=== PATIENT | female | born 1970 | race Caucasian/White ===

== ENCOUNTER 2018-11-13 18:01 | Emergency (ER) | payer BC ==
[2018-11-13] MEDS ORDERED: IPRATROPIUM/ALBUTEROL 0.5-2.5 MG/3 ML AMPUL NEB ONE ×2 (19:27→23:39)
--- NOTE | 2018-11-13 19:29 | ER Document Report ---
ED Medical Screen (RME) - General Chief Complaint: Flu Symptoms Stated Complaint: DIFFICULTY BREATHING Time Seen by Provider: 11/13/18 19:20 Mode of Arrival: Ambulatory Information source: Patient TRAVEL OUTSIDE OF THE [place] IN LAST 30 DAYS: No - HPI Patient complains to provider of: JOSE DORSEY Notes: 11/13/18 19:28 Patient here with complaints of cough and congestion for the last 4 days. She was seen in urgent care on Saturday and was placed on Tessalon and prednisone as well as an inhaler. She seems to be getting worse. She states that she feels short of breath. She is also had some difficulty lying flat and sleeping and complains of bilateral leg swelling for the last several weeks. No fevers. Sputum is clear. She complains of some occasional chest pain. No recent long trips or surgeries, no leg pain, no cancer, no hormone, no history of DVT or PE. Exam No distress, nontoxic-appearing. Lungs clear, bronchitic cough noted. No obvious lower extremity edema noted. Heart sounds normal. Plan CBC, CMP, troponin, BNP, EKG, chest x-ray, DuoNeb. An initial examination was made on the patient as part of the triage process, and it was determined a more comprehensive evaluation was necessary. Initial labs were ordered and patient was transferred to another provider in the ED who assumed care and finished evaluation and plan. Past Medical History - Social History Chew tobacco use (# tins/day): No Frequency of alcohol use: None Drug Abuse: None Renal/ Medical History: Denies: Hx Peritoneal Dialysis Physical Exam - Vital signs Vitals: Temp Pulse Resp BP Pulse Ox 99.6 F 90 20 134/77 H 95 11/13/18 18:11 11/13/18 18:11 11/13/18 18:11 11/13/18 18:11 11/13/18 18:11 Course - Vital Signs Vital signs: Temp Pulse Resp BP Pulse Ox 99.6 F 90 20 134/77 H 95 11/13/18 18:11 11/13/18 18:11 11/13/18 18:11 11/13/18 18:11 11/13/18 18:11
--- NOTE | 2018-11-13 20:20 | RADIOLOGY REPORT (SQ) ---
EXAM DESCRIPTION: XR CHEST 2 VIEWS COMPLETED DATE/TME: 11/13/2018 19:27 CLINICAL HISTORY: 48 years, Female, COUGH, CP COMPARISON: None. NUMBER OF VIEWS: Two TECHNIQUE: PA and lateral chest radiographs were obtained LIMITATIONS: None. FINDINGS: Cardiac and mediastinal contours are normal in appearance. Lungs are clear. No pleural effusion or pneumothorax. IMPRESSION: No acute disease. copyright 2010 [employer]- All Rights Reserved
[2018-11-13 20:57] LABS: ABSOLUTE LYMPHOCYTES (AUTO) 0.6 10^3/uL (0.5-4.7); ABSOLUTE MONOCYTES (AUTO) 0.5 10^3/uL (0.1-1.4); ABSOLUTE NEUT (AUTO) 10.3 10^3/uL (1.7-8.2); BASOPHILS % (AUTO) 0.3 % (0-2); HEMATOCRIT 40.3 % (36.0-47.0); HEMOGLOBIN 14.1 g/dL (12.0-15.5); LYMPHOCYTES % (AUTO) 5.5 % (13-45); MEAN CORPUSCULAR HEMOGLOBIN 30.2 pg (27.0-33.4); MEAN CORPUSCULAR HGB CONC 34.9 g/dL (32.0-36.0); MEAN CORPUSCULAR VOLUME 87 fl (80-97); MONOCYTES % (AUTO) 4.6 % (3-13); PLATELET COUNT 245 10^3/uL (150-450); RED BLOOD COUNT 4.66 10^6/uL (3.72-5.28); RED CELL DISTRIBUTION WIDTH 13.5 % (11.5-14.0); SEGMENTED NEUTROPHILS % (AUTO) 89.6 % (42-78); TOTAL CELLS COUNTED % (AUTO) 100 %; WHITE BLOOD COUNT 11.5 10^3/uL (4.0-10.5)
[2018-11-13 21:22] LABS: ALANINE AMINOTRANSFERASE 37 U/L (9-52); ALBUMIN 4.3 g/dL (3.5-5.0); ALKALINE PHOSPHATASE 46 U/L (38-126); ANION GAP 9 (5-19); ASPARTATE AMINO TRANSFERASE 20 U/L (14-36); BILIRUBIN,DIRECT 0.3 mg/dL (0.0-0.4); BILIRUBIN,TOTAL 0.5 mg/dL (0.2-1.3); BLOOD UREA NITROGEN 14 mg/dL (7-20); CALCIUM 9.3 mg/dL (8.4-10.2); CARBON DIOXIDE 27 mmol/L (22-30); CHLORIDE 104 mmol/L (98-107); GLUCOSE 100 mg/dL (75-110); POTASSIUM 4.1 mmol/L (3.6-5.0); SODIUM 140.2 mmol/L (137-145); TOTAL PROTEIN 7.2 g/dL (6.3-8.2)
[2018-11-13 21:28] LABS: NT PRO BNP 141 pg/mL (<125)
[2018-11-13 21:30] LABS: TROPONIN I < 0.012 ng/mL
[2018-11-13 23:14] LABS: A TYPE INFLUENZA AG NEGATIVE (NEGATIVE); B INFLUENZA AG NEGATIVE (NEGATIVE)
[2018-11-13] MEDS ORDERED: METHYLPREDNISOLONE INJ 125 MG/2 ML SDV IV ONE (23:39)
--- NOTE | 2018-11-13 23:40 | ER Document Report ---
ED Respiratory Problem - General Chief Complaint: Flu Symptoms Stated Complaint: DIFFICULTY BREATHING Time Seen by Provider: 11/13/18 19:20 Primary Care Provider: KIERA HENSLEY MD [ACTIVE STAFF] - Follow up tomorrow Mode of Arrival: Ambulatory Notes: Patient is a 48-year-old female that comes emergency department chief complaint of approximately 4 days of cough, shortness of breath, she also states she felt like she was having a fever on Saturday and yesterday she had a temperature of 100 F. She states that she feels like she cannot get a full breath, she feels like she cannot lie down. She was given an inhaler without a spacer, started on prednisone, given Flonase and Tessalon Perles. She states she does not feel improved. She reports a history of chronic bronchitis, secondhand smoke, denies ever smoking herself. She takes no daily medications, denies any medical history otherwise. She states she did have lower extremity swelling after starting a job where she was constantly on her feet but she started wearing compression stockings and the swelling resolved. TRAVEL OUTSIDE OF THE [place] IN LAST 30 DAYS: No - Related Data Allergies/Adverse Reactions: amoxicillin Allergy (Verified 11/13/18 19:28) Penicillins Allergy (Verified 11/13/18 19:28) Sulfa (Sulfonamide Antibiotics) Allergy (Verified 11/13/18 19:28) Past Medical History - General Information source: Patient - Social History Smoking Status: Never Smoker Chew tobacco use (# tins/day): No Frequency of alcohol use: None Drug Abuse: None Lives with: Family Family History: Reviewed & Not Pertinent Patient has suicidal ideation: No Patient has homicidal ideation: No Pulmonary Medical History: Reports: Hx Bronchitis Renal/ Medical History: Denies: Hx Peritoneal Dialysis - Immunizations Immunizations up to date: Yes Hx Diphtheria, Pertussis, Tetanus Vaccination: Yes Review of Systems - Review of Systems Constitutional: See HPI EENT: No symptoms reported Cardiovascular: No symptoms reported Respiratory: See HPI Gastrointestinal: No symptoms reported Genitourinary: No symptoms reported Female Genitourinary: No symptoms reported Musculoskeletal: No symptoms reported Skin: No symptoms reported Hematologic/Lymphatic: No symptoms reported Neurological/Psychological: No symptoms reported Physical Exam - Vital signs Vitals: Temp Pulse Resp BP Pulse Ox 99.6 F 90 20 134/77 H 95 11/13/18 18:11 11/13/18 18:11 11/13/18 18:11 11/13/18 18:11 11/13/18 18:11 - Notes Notes: GENERAL: Alert, interacts well. No acute distress. HEAD: Normocephalic, atraumatic. EYES: Pupils equal, round, and reactive to light. Extraocular movements intact. ENT: Oral mucosa moist, tongue midline. Oropharynx unremarkable. Airway patent. NECK: Full range of motion. Supple. Trachea midline. LUNGS: Expiratory wheezes throughout, no rales or rhonchi. No tachypnea or labored breathing. HEART: Regular rate and rhythm. No murmur ABDOMEN: Soft, non-tender. Non-distended. Bowel sounds present in all 4 quadrants. GENITOURINARY: Deferred EXTREMITIES: Moves all 4 extremities spontaneously. No edema, normal radial and dorsalis pedis pulses bilaterally. No cyanosis. BACK: no cervical, thoracic, lumbar midline tenderness. No saddle anesthesia, normal distal neurovascular exam. NEUROLOGICAL: Alert and oriented x3. Normal speech. cranial nerves II through XII grossly intact. PSYCH: Normal affect, normal mood. SKIN: Warm, dry, normal turgor. No rashes or lesions noted. Course - Re-evaluation Re-evalutation: Patient with a lot of expiratory wheezes on exam. However she does not have tachypnea or labored breathing. She does not have hypoxia. She does not appear to be in any distress. She was given duo nebs, magnesium, Solu-Medrol after i nitial DuoNeb did not resolve her symptoms. After that she was significantly improved, states she feels much better, wheezing is almost resolved. She can ambulate without any dyspnea, she is not hypoxic on my exam. CBC, chemistry unremarkable. Chest x-ray unremarkable. Influenza test run in triage was reviewed and negative. Troponin negative, BNP is not elevated significantly, patient has no lower extremity swelling on my exam. Clinical picture is most consistent with bronchitis. Discussed treatment, provided with spacer, provided with symptom relief, patient will complete her prednisone, start her doxycycline that she was prescribed, and follow-up with primary care. I did provide a referral on request. Discussed return precautions. Patient states understanding and agreement. - Vital Signs Vital signs: Temp Pulse Resp BP Pulse Ox 98.0 F 91 18 124/81 96 11/14/18 02:14 11/14/18 02:14 11/14/18 02:14 11/14/18 02:14 11/14/18 02:14 - Laboratory Result Diagrams: 11/13/18 20:23 11/13/18 20:23 Laboratory results interpreted by me: 11/13/18 11/13/18 20:23 20:23 WBC 11.5 H Seg Neutrophils % 89.6 H Lymphocytes % 5.5 L Absolute Neutrophils 10.3 H NT-Pro-B Natriuret Pep 141 H Discharge - Discharge Clinical Impression: Wheezing, Bronchitis Condition: Stable Disposition: HOME, SELF-CARE Additional Instructions: Your examination is consistent with bronchitis. There is no evidence of fluid on your lungs (congestive heart failure), pneumonia, heart attack, or other concerning a normality on your work-up. Use your albuterol inhaler, use the spacer, uses every 4-6 hours as needed. Continue your prednisone, consider taking your doxycycline. Use the syrup if needed for cough especially at night to sleep. Follow-up closely with the primary care referral for additional evaluation and management. Return if you worsen including increased difficulty breathing, fevers, or any other concerning or worsening symptoms. Prescriptions: Hydrocodone Bit/Homatropine [Hycodan Syrup 5-1.5 mg/5 ml Ud Cup] 5 ml PO Q4HP PRN #120 ml PRN Reason: Forms: Return to Work Referrals: KIERA HENSLEY MD [ACTIVE STAFF] - Follow up tomorrow
[2018-11-13] MEDS: MAGNESIUM SULFATE/D5W 1 GM/100 ML RTUPB IV SCH (23:43)
[2018-11-14] MEDS: MAGNESIUM SULFATE/D5W 1 GM/100 ML RTUPB IV SCH (01:10)
[2018-11-14] MEDS ORDERED: ALBUTEROL SULFATE HFA (90 MCG/PUFF) 8 GM MDI (1 MDI/ER DISP) IH ONE (01:59)
[2018-11-14 02:15] VITALS: BP 124/81
--- NOTE | 2018-11-14 22:40 | EKG REPORT ---
SEVERITY:- NORMAL ECG - SINUS RHYTHM : Confirmed by: Lizet Russell MD 14-Nov-2018 22:40:26
== END 2018-11-14 02:23 | disposition home or self-care (01) ==
LOC: ER 18:01
DX: J40 Bronchitis, not specified as acute or chronic (principal); R06.2 Wheezing; Z88.0 Allergy status to penicillin; Z88.2 Allergy status to sulfonamides
CPT/HCPCS: 93005; 94640; 99284; 96375; 96365; 96366; 36415; 85025; 80053; 84484; 87804; 83880; 71046; 93010; J2930; J3475 ×2; J3490; J7620

== ENCOUNTER → 2018-11-26 | Outpatient (CLI) | payer BC ==
[2018-11-26 08:14] LABS: ABSOLUTE EOSINOPHILS # (AUTO) 0.1 10^3/uL (0.0-0.6); ABSOLUTE LYMPHOCYTES (AUTO) 1.9 10^3/uL (0.5-4.7); ABSOLUTE MONOCYTES (AUTO) 0.6 10^3/uL (0.1-1.4); ABSOLUTE NEUT (AUTO) 5.1 10^3/uL (1.7-8.2); BASOPHILS % (AUTO) 0.6 % (0-2); HEMATOCRIT 41.9 % (36.0-47.0); HEMOGLOBIN 14.6 g/dL (12.0-15.5); LYMPHOCYTES % (AUTO) 24.4 % (13-45); MEAN CORPUSCULAR HEMOGLOBIN 30.1 pg (27.0-33.4); MEAN CORPUSCULAR HGB CONC 34.9 g/dL (32.0-36.0); MEAN CORPUSCULAR VOLUME 86 fl (80-97); PLATELET COUNT 227 10^3/uL (150-450); RED BLOOD COUNT 4.86 10^6/uL (3.72-5.28); RED CELL DISTRIBUTION WIDTH 13.4 % (11.5-14.0); TOTAL CELLS COUNTED % (AUTO) 100 %; WHITE BLOOD COUNT 7.7 10^3/uL (4.0-10.5)
--- NOTE | 2018-11-26 08:43 | RADIOLOGY REPORT (SQ) ---
EXAM DESCRIPTION: CHEST PA/LATERAL COMPLETED DATE/TIME: 11/26/2018 7:58 am REASON FOR STUDY: CHEST PAIN ON BREATHING COMPARISON: 11/13/2018 EXAM PARAMETERS: NUMBER OF VIEWS: two views TECHNIQUE: Digital Frontal and Lateral radiographic views of the chest acquired. RADIATION DOSE: NA LIMITATIONS: none FINDINGS: LUNGS AND PLEURA: No opacities, masses or pneumothorax. No pleural effusion. MEDIASTINUM AND HILAR STRUCTURES: No masses or contour abnormalities. HEART AND VASCULAR STRUCTURES: Heart normal size. No evidence for failure. BONES: No acute findings. HARDWARE: None in the chest. OTHER: No other significant finding. IMPRESSION: NO SIGNIFICANT RADIOGRAPHIC FINDING IN THE CHEST. TECHNICAL DOCUMENTATION: JOB ID: [id number] [employer]- All Rights Reserved Reading location - IP/workstation name: [email or web address]
[2018-11-26 08:46] LABS: ALANINE AMINOTRANSFERASE 24 U/L (9-52); ALBUMIN 3.8 g/dL (3.5-5.0); ALKALINE PHOSPHATASE 40 U/L (38-126); ANION GAP 9 (5-19); ASPARTATE AMINO TRANSFERASE 18 U/L (14-36); BILIRUBIN,DIRECT 0.3 mg/dL (0.0-0.4); BILIRUBIN,TOTAL 0.5 mg/dL (0.2-1.3); BLOOD UREA NITROGEN 14 mg/dL (7-20); CARBON DIOXIDE 30 mmol/L (22-30); CHLORIDE 103 mmol/L (98-107); CREATINE KINASE 68 U/L (30-135); GLUCOSE 95 mg/dL (75-110); POTASSIUM 3.7 mmol/L (3.6-5.0); SODIUM 141.8 mmol/L (137-145); TOTAL PROTEIN 6.7 g/dL (6.3-8.2)
[2018-11-26 08:53] LABS: TROPONIN I < 0.012 ng/mL
== END ==
LOC: OD 07:19
PROVIDERS: ATTEND Physician Assistant
DX: R07.1 Chest pain on breathing (principal)
CPT/HCPCS: 36415; 71046; 80053; 82550; 82553; 84484; 85025; 85379

== ENCOUNTER 2019-02-16 16:55 | Emergency (ER) | payer BC ==
[2019-02-16] MEDS ORDERED: ASPIRIN 81 MG TABLET, CHEWABLE PO ONE (18:15)
[2019-02-16] MEDS ORDERED: NITROGLYCERIN 2% OINTMENT 1 GM PACKET TP ONE (18:16)
[2019-02-16] MEDS ORDERED: NITROGLYCERIN 0.4 MG/TAB 25 TAB/BOTTLE SL PRN (18:16)
--- NOTE | 2019-02-16 18:27 | ER Document Report ---
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 The pain is also worse with movement of her left arm. She states sometimes the pain radiates down her left arm. denies any neck pain. She states she wears Livan hosing chronically and her right leg is always more swollen than her left. She states chest pain and shortness of breath are worse with exertion and better with rest. She tells me she follows with Dr. Hernandez, cardiology in [place], and had a negative stress test 2 weeks ago. i do not have access to these records for review however. she takes Symbicort and albuterol. Pt denies any prior personal cardiac history. pt endorses family history of CAD and her dad about [place] 45 along with a triple and quadruple bypass and stents. She denies smoking. Denies history of anxiety. She states her inhalers ongoing upper shortness of breath little bit however it feels different than his COPD exacerbation. She has not had a cough. No recent antibiotics or steroids. No syncope. no palpitations. no hx of mi, cva, tia, CHF, or cad. no ripping or tearing sensation. denies any blood thinners. No prior history of blood clots. No recent long distance travel/immobilization, recent surgery, exogenous estrogen use, hemoptysis, history of cancer, or calf pain/swelling. No prior history of arrhythmias. No fall or trauma. No other complaints at this time. ROS neg to include 10 systems, unless mentioned in the hpi. PE:>>>> PHYSICAL_EXAM: GENERAL_APPEARANCE: well_nourished, alert, cooperative, no_acute_distress, mild_obvious_discomfort. pleasant, obese middle-aged white female who appears slightly older than stated age, tearful, describes the pain as electric shocks, speaking in full sentences, in no sign of resp distress, VITALS: reviewed, see vital signs table. HEAD: no_swelling\tenderness on the head. normocephalic. atraumatic. no yung signs. no raccoons eyes. EYES: PERRL, EOMI, conjunctiva_clear. NOSE: no_nasal_discharge. MOUTH: (-)decreased moisture. THROAT: no_tonsilar_inflammation, no_airway_obstruction. no_lymphadenopathy NECK: supple, no midline neck_tenderness, there is tenderness to palpation of the left rhomboids. Spasm noted. Palpation here reproduces the patient's pain. No overlying skin changes. Full rom. full strength. no meningeal signs. no sign of central cord syndrome. BACK: no_back_tenderness. CHEST_WALL: no_chest_tenderness. no overlying skin changes LUNGS: no_wheezing, ctab (-)accessory muscle use, good air exchange bilateral. HEART: normal_rate, normal_rhythm, ABDOMEN: normal_BS, soft, no_abd_tenderness, (-)guarding, (-)rebound, no distension or peritoneal signs. no cva ttp EXTREMITIES: strength 5/5 in all_extremities, good pulses in all_extremities, no_swelling\tenderness in the extremities, no_edema. full rom. normal gait. good pulses. brisk cap refill. 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 NEURO: motor and sensation intact, SKIN: warm, dry, good_color, no_rash. MENTAL_STATUS: speech_clear, oriented_X_3, normal_affect, responds_appropriately to questions. MDM: I have ordered labs and initial work-up and patient will be transferred to the main ER for further work-up. I have greeted and performed a rapid initial assessment of this patient. A comprehensive ED assessment and evaluation of the patient, analysis of test results and completion of medical decision making process will be conducted by an additional ED providers. Documentation achieved through voice recording which my lead to some occasional accidental typographical errors. Extensive efforts have been made to proof read documentation to make sure these are the least as possible Temp Pulse Resp BP Pulse Ox 02/16/19 17:11 98.2 F 78 17 108/72 100 Category Date Time Status Continuous Cardiac Monitoring (ED) CONTINUOUS Care 02/16/19 18:15 Ordered EKG Documentation STAT Care 02/16/19 16:56 Completed Oxygen (ED) Nasal Cannula 2 lpm Care 02/16/19 18:15 Ordered Pulse Oximeter Continuous (ED) CONTINUOUS Care 02/16/19 18:15 Ordered Saline Lock (ED) NOW Care 02/16/19 18:15 Ordered CHEST 2 VIEWS [RAD] Stat Exams 02/16/19 18:15 Ordered CBC WITH DIFF [HEME] Stat Lab 02/16/19 18:14 Ordered COMPREHENSIVE METABOLIC PANEL [CHEM] Stat Lab 02/16/19 18:14 Ordered CREATINE KINASE MB [CHEM] Stat Lab 02/16/19 18:14 Ordered CREATINE KINASE [CHEM] Stat Lab 02/16/19 18:14 Ordered D Dimer [D-DIMER] [COAG] Stat Lab 02/16/19 18:28 Ordered LIPASE [CHEM] Stat Lab 02/16/19 18:14 Ordered NT PRO BNP [CHEM] Stat Lab 02/16/19 18:14 Ordered PARTIAL THROMBOPLASTIN TIME [COAG] Stat Lab 02/16/19 18:14 Ordered PROTHROMBIN TIME/INR [COAG] Stat Lab 02/16/19 18:14 Ordered TROPONIN I [CHEM] Stat Lab 02/16/19 18:14 Ordered TROPONIN I [CHEM] Stat Lab 02/16/19 22:15 Ordered URINALYSIS [URIN] Stat Lab 02/16/19 18:15 Uncollected Aspirin [Aspirin 81 mg Chewable Tablet] Med 02/16/19 18:15 Once 324 mg PO NOW ONE Nitroglycerin [Nitrol 2% Ointment 1Gm Packet] Med 02/16/19 18:16 Once 1 gm TP NOW ONE Nitroglycerin [Nitrostat 0.4 mg (1/150 Gr) Tabs 25/ Med 02/16/19 18:16 Ordered Bottle] 1 tab SL ASDIR PRN EKG ER ONLY [ER] Stat Oth 02/16/19 Active TRAVEL OUTSIDE OF THE [place] IN LAST 30 DAYS: No - Related Data Allergies/Adverse Reactions: amoxicillin Allergy (Verified 11/13/18 19:28) Penicillins Allergy (Verified 11/13/18 19:28) Sulfa (Sulfonamide Antibiotics) Allergy (Verified 11/13/18 19:28) Past Medical History - Social History Chew tobacco use (# tins/day): No Frequency of alcohol use: None Drug Abuse: None Pulmonary Medical History: Reports: Hx Bronchitis Renal/ Medical History: Denies: Hx Peritoneal Dialysis - Immunizations Immunizations up to date: Yes Hx Diphtheria, Pertussis, Tetanus Vaccination: Yes Physical Exam - Vital signs Vitals: Temp Pulse Resp BP Pulse Ox 98.2 F 78 17 108/72 100 02/16/19 17:11 02/16/19 17:11 02/16/19 17:11 02/16/19 17:11 02/16/19 17:11 Course - Vital Signs Vital signs: Temp Pulse Resp BP Pulse Ox 98.2 F 78 17 108/72 100 02/16/19 17:11 02/16/19 17:11 02/16/19 17:11 02/16/19 17:11 02/16/19 17:11 Doctor's Discharge - Discharge Referrals: ERNST HANCOCK PA [Primary Care Provider] - Follow up as needed
[2019-02-16 18:46] LABS: ABSOLUTE BASOPHILS # (AUTO) 0.1 10^3/uL (0.0-0.2); ABSOLUTE LYMPHOCYTES (AUTO) 1.9 10^3/uL (0.5-4.7); ABSOLUTE MONOCYTES (AUTO) 0.4 10^3/uL (0.1-1.4); ABSOLUTE NEUT (AUTO) 5.5 10^3/uL (1.7-8.2); EOSINOPHILS % (AUTO) 0.5 % (0-6); HEMATOCRIT 41.1 % (36.0-47.0); HEMOGLOBIN 14.5 g/dL (12.0-15.5); LYMPHOCYTES % (AUTO) 23.4 % (13-45); MEAN CORPUSCULAR HEMOGLOBIN 30.3 pg (27.0-33.4); MEAN CORPUSCULAR HGB CONC 35.4 g/dL (32.0-36.0); MEAN CORPUSCULAR VOLUME 86 fl (80-97); MONOCYTES % (AUTO) 5.5 % (3-13); PLATELET COUNT 244 10^3/uL (150-450); RED BLOOD COUNT 4.79 10^6/uL (3.72-5.28); RED CELL DISTRIBUTION WIDTH 13.3 % (11.5-14.0); SEGMENTED NEUTROPHILS % (AUTO) 69.6 % (42-78); TOTAL CELLS COUNTED % (AUTO) 100 %; WHITE BLOOD COUNT 7.9 10^3/uL (4.0-10.5)
[2019-02-16 18:57] LABS: INTERNATIONAL RATION (INR) 1.04; PROTHROMBIN TIME 13.6 SEC (11.4-15.4)
[2019-02-16 18:58] LABS: PARTIAL THROMBOPLASTIN TIME 30.9 SEC (23.5-35.8)
--- NOTE | 2019-02-16 19:00 | RADIOLOGY REPORT (SQ) ---
EXAM DESCRIPTION: CHEST 2 VIEWS COMPLETED DATE/TIME: 02/16/2019 6:42 pm REASON FOR STUDY: cp COMPARISON: 11/26/2018 EXAM PARAMETERS: NUMBER OF VIEWS: two views TECHNIQUE: Digital Frontal and Lateral radiographic views of the chest acquired. RADIATION DOSE: NA LIMITATIONS: none FINDINGS: LUNGS AND PLEURA: No opacities, masses or pneumothorax. No pleural effusion. MEDIASTINUM AND HILAR STRUCTURES: No masses or contour abnormalities. HEART AND VASCULAR STRUCTURES: Heart normal size. No evidence for failure. BONES: No acute findings. HARDWARE: None in the chest. OTHER: No other significant finding. IMPRESSION: NO ACUTE RADIOGRAPHIC FINDING IN THE CHEST. TECHNICAL DOCUMENTATION: JOB ID: [id number] [employer]- All Rights Reserved Reading location - IP/workstation name: [email or web address]
[2019-02-16 19:08] LABS: ALBUMIN 4.5 g/dL (3.5-5.0); ALKALINE PHOSPHATASE 45 U/L (38-126); ANION GAP 11 (5-19); ASPARTATE AMINO TRANSFERASE 27 U/L (14-36); BILIRUBIN,DIRECT 0.2 mg/dL (0.0-0.4); BILIRUBIN,TOTAL 0.6 mg/dL (0.2-1.3); BLOOD UREA NITROGEN 17 mg/dL (7-20); CALCIUM 9.7 mg/dL (8.4-10.2); CARBON DIOXIDE 26 mmol/L (22-30); CHLORIDE 102 mmol/L (98-107); GLUCOSE 96 mg/dL (75-110); POTASSIUM 3.7 mmol/L (3.6-5.0); TOTAL PROTEIN 7.3 g/dL (6.3-8.2)
[2019-02-16 19:09] LABS: D-DIMER 0.28 ug/mL (0.00-0.50)
[2019-02-16 19:20] LABS: CREATINE KINASE MB 2.84 ng/mL (<4.55); NT PRO BNP 47 pg/mL (<125)
[2019-02-16 19:23] LABS: TROPONIN I < 0.012 ng/mL
--- NOTE | 2019-02-16 21:15 | RADIOLOGY REPORT (SQ) ---
EXAM DESCRIPTION: CT CHEST ANGIOGRAPHY WITHOUT THEN WITH IV CONTRAST COMPLETED DATE/TME: 02/16/2019 19:58 CLINICAL HISTORY: 48 years, Female, cp/sob COMPARISON: PROCEDURE: CLINICAL HISTORY: 48 years Female cp/sob COMPARISON: None. TECHNIQUE: Contiguous axial images were obtained through the chest during the infusion of IV contrast. Reformatted images obtained. MIP reformatted images obtained. This exam was performed according to our department optimization program which includes automated exposure control, adjustment of the mA and/or kv according to patient size and/or use of iterative reconstruction technique. FINDINGS: Patient motion limits detail. Heart size is mildly enlarged. There is mild probable groundglass opacification in both lungs but patient motion significantly limits pulmonary detail. No pneumothorax is seen. No pleural effusions. No lymphadenopathy. No PE is seen. No evidence of aortic aneurysm. No other significant abnormality. IMPRESSION: Mild cardiomegaly. No PE is seen.copyright
--- NOTE | 2019-02-16 21:31 | ER Document Report ---
ED Cardiac - General Chief Complaint: Chest Pain Stated Complaint: CHEST PAIN Time Seen by Provider: 02/16/19 18:14 Primary Care Provider: ERNST HANCOCK PA [PHYSICIAN COST MANAGER] - Follow up as needed TRAVEL OUTSIDE OF THE [place] IN LAST 30 DAYS: No - HPI Notes: Patient presents complaint of right-sided chest pain. Patient complains of pain along the right side of her chest. Is been present for about 9 months. She does not note any injuries or trauma. She states it did seem to occur after lifting some heavy objects. She has had no cough cold or congestion. No significant rashes. She has not noticed any swelling to her chest. She has had some intermittent shortness of breath. The pain is worse when she lies on her right side. She also states that it feels that it goes "numb" when she lays on her right side. No fevers. No nausea or abdominal pain. No diaphoresis. There is no significant increasing or decreasing factors other than as mentioned above. The pain does radiate down the right side. It is moderate in intensity. It is intermittent. - Related Data Allergies/Adverse Reactions: amoxicillin Allergy (Verified 11/13/18 19:28) Penicillins Allergy (Verified 11/13/18 19:28) Sulfa (Sulfonamide Antibiotics) Allergy (Verified 11/13/18 19:28) Past Medical History - General Information source: Patient - Social History Smoking Status: Never Smoker Chew tobacco use (# tins/day): No Frequency of alcohol use: None Drug Abuse: None Family History: Reviewed & Not Pertinent Patient has suicidal ideation: No Patient has homicidal ideation: No - Past Medical History Cardiac Medical History: Denies: Hx Coronary Artery Disease, Hx DVT Pulmonary Medical History: Reports: Hx Bronchitis Endocrine Medical History: Denies: Hx Diabetes Mellitus Type 1, Hx Diabetes Mellitus Type 2 Renal/ Medical History: Denies: Hx Peritoneal Dialysis - Immunizations Immunizations up to date: Yes Hx Diphtheria, Pertussis, Tetanus Vaccination: Yes Review of Systems - Review of Systems Constitutional: Malaise, Weakness. denies: Chills, Fever Cardiovascular: Chest pain, Dyspnea Respiratory: Short of breath. denies: Hemoptysis Neurological/Psychological: Numbness -: Yes All other systems reviewed and negative Physical Exam - Vital signs Vitals: Temp Pulse Resp BP Pulse Ox 98.2 F 78 17 108/72 100 02/16/19 17:11 02/16/19 17:11 02/16/19 17:11 02/16/19 17:11 02/16/19 17:11 Interpretation: Normal - General General appearance: Appears well, Alert - HEENT Head: Normocephalic, Atraumatic Eyes: Normal Pupils: PERRL - Respiratory Respiratory status: No respiratory distress Chest status: Nontender Breath sounds: Normal Chest palpation: Normal - Cardiovascular Rhythm: Regular Heart sounds: Normal auscultation Murmur: No - Abdominal Inspection: Normal Distension: No distension Bowel sounds: Normal Tenderness: Nontender Organomegaly: No organomegaly - Back Back: Normal, Nontender - Extremities General upper extremity: Normal inspection, Nontender, Normal color, Normal ROM, Normal temperature General lower extremity: Normal inspection, Nontender, Normal color, Normal ROM, Normal temperature, Normal weight bearing. No: Bam's sign - Neurological Neuro grossly intact: Yes Cognition: Normal Orientation: AAOx4 Spencer Coma Scale Eye Opening: Spontaneous Spencer Coma Scale Verbal: Oriented Greer Coma Scale Motor: Obeys Commands Spencer Coma Scale Total: 15 Speech: Normal Motor strength normal: LUE, RUE, LLE, RLE Sensory: Normal - Psychological Associated symptoms: Normal affect, Normal mood - Skin Skin Temperature: Warm Skin Moisture: Dry Skin Color: Normal Course - Vital Signs Vital signs: Temp Pulse Resp BP Pulse Ox 98.2 F 78 17 131/89 H 99 02/16/19 17:11 02/16/19 17:11 02/16/19 21:01 02/16/19 21:00 02/16/19 21:01 - Laboratory Result Diagrams: 02/16/19 18:39 02/16/19 18:39 Laboratory results interpreted by me: 02/16/19 18:39 Creatine Kinase 233 H 02/16/19 21:28 Laboratory 02/16/19 02/16/19 02/16/19 18:39 18:39 18:39 WBC 7.9 RBC 4.79 Hgb 14.5 Hct 41.1 MCV 86 MCH 30.3 MCHC 35.4 RDW 13.3 Plt Count 244 Seg Neutrophils % 69.6 Lymphocytes % 23.4 Monocytes % 5.5 Eosinophils % 0.5 Basophils % 1.0 Absolute Neutrophils 5.5 Absolute Lymphocytes 1.9 Absolute Monocytes 0.4 Absolute Eosinophils 0.0 Absolute Basophils 0.1 PT 13.6 INR 1.04 APTT 30.9 D-Dimer 0.28 Sodium 138.5 Potassium 3.7 Chloride 102 Carbon Dioxide 26 Anion Gap 11 BUN 17 Creatinine 0.91 Est GFR ( Amer) > 60 Est GFR (Non-Af Amer) > 60 Glucose 96 Calcium 9.7 Total Bilirubin 0.6 Direct Bilirubin 0.2 Neonat Total Bilirubin Not Reportable Neonat Direct Bilirubin Not Reportable Neonat Indirect Bili Not Reportable AST 27 ALT 21 Alkaline Phosphatase 45 Creatine Kinase CK-MB (CK-2) Troponin I NT-Pro-B Natriuret Pep Total Protein 7.3 Albumin 4.5 Lipase 02/16/19 02/16/19 18:39 18:39 WBC RBC Hgb Hct MCV MCH MCHC RDW Plt Count Seg Neutrophils % Lymphocytes % Monocytes % Eosinophils % Basophils % Absolute Neutrophils Absolute Lymphocytes Absolute Monocytes Absolute Eosinophils Absolute Basophils PT INR APTT D-Dimer Sodium Potassium Chloride Carbon Dioxide Anion Gap BUN Creatinine Est GFR ( Amer) Est GFR (Non-Af Amer) Glucose Calcium Total Bilirubin Direct Bilirubin Neonat Total Bilirubin Neonat Direct Bilirubin Neonat Indirect Bili AST ALT Alkaline Phosphatase Creatine Kinase 233 H CK-MB (CK-2) 2.84 Troponin I < 0.012 NT-Pro-B Natriuret Pep 47 Total Protein Albumin Lipase 80.4 - Diagnostic Test Radiology reviewed: Image reviewed, Reports reviewed - CT shows no evidence of pulmonary embolism Radiology results interpreted by nj: 02/16/19 21:28 Chest X-Ray 02/16/19 18:15 IMPRESSION: NO ACUTE RADIOGRAPHIC FINDING IN THE CHEST. Chest/Abdomen CTA 02/16/19 19:58 IMPRESSION: Mild cardiomegaly. No PE is seen.copyright - EKG Interpretation by Nh EKG shows normal: Sinus rhythm Rate: Normal - 78 Rhythm: NSR [place]/QRS: No: Right axis deviation, Left axis deviation Discharge - Discharge Clinical Impression: Pleurisy Condition: Stable Disposition: HOME, SELF-CARE Instructions: Chest Wall Pain ([facility]) Additional Instructions: Please call your family physician as soon as possible to schedule a recheck Prescriptions: Tramadol HCl [Ultram 50 mg Tablet] 50 mg PO Q4HP PRN #15 tab PRN Reason: Forms: Return to Work Referrals: ERNST HANCOCK PA [PHYSICIAN COST MANAGER] - Follow up in 1 week
[2019-02-16 21:40] VITALS: BP 102/62
--- NOTE | 2019-02-17 09:44 | EKG REPORT ---
SEVERITY:- NORMAL ECG - SINUS RHYTHM : Confirmed by: Alvin De Oliveira 17-Feb-2019 09:44:21
== END 2019-02-16 21:39 | disposition home or self-care (01) ==
LOC: ER 16:55
DX: R09.1 Pleurisy (principal); R53.1 Weakness; R07.9 Chest pain, unspecified; Z88.0 Allergy status to penicillin; Z88.2 Allergy status to sulfonamides
CPT/HCPCS: 36415; 71046; 71275; 80053; 82550; 82553; 83690; 83880; 84484; 85025; 85379; 85610; 85730; 93005; 93010; 99284

== ENCOUNTER 2019-04-30 11:08 | Emergency (ER) | payer BC ==
[2019-04-30] MEDS ORDERED: PREDNISONE 20 MG TABLET PO ONE (11:21)
[2019-04-30] MEDS ORDERED: IPRATROPIUM/ALBUTEROL 0.5-2.5 MG/3 ML AMPUL NEB ONE (11:21)
--- NOTE | 2019-04-30 11:22 | ER Document Report ---
ED Medical Screen (RME) - General Chief Complaint: Breathing Difficulty Stated Complaint: SHORTNESS OF BREATH Time Seen by Provider: 04/30/19 11:18 Primary Care Provider: PATRICE WASHINGTON MD [Primary Care Provider] - Follow up as needed Mode of Arrival: Ambulatory Information source: Patient Notes: Patient is a 41-year-old female with past medical history of asthma presenting with asthma exacerbation. Patient reports tightness across the middle of her chest and shortness of breath. She reports she is tried taking her albuterol inhaler without relief. Mild expiratory wheezes noted bilaterally. I have greeted and performed a rapid initial assessment of this patient. A comprehensive ED assessment and evaluation of the patient, analysis of test results and completion of the medical decision making process will be conducted by additional ED providers. I have specifically instructed the patient or family members with the patient to immediately return to any nursing staff should anything change in the patient's condition or with their chief complaint. This medical record was dictated with voice recognizing software. There may be grammatical, syntax errors that are unintended. TRAVEL OUTSIDE OF THE [place] IN LAST 30 DAYS: No - Related Data Allergies/Adverse Reactions: amoxicillin Allergy (Verified 11/13/18 19:28) Penicillins Allergy (Verified 11/13/18 19:28) Sulfa (Sulfonamide Antibiotics) Allergy (Verified 11/13/18 19:28) Past Medical History - Past Medical History Cardiac Medical History: Denies: Hx Coronary Artery Disease, Hx DVT Pulmonary Medical History: Reports: Hx Bronchitis Endocrine Medical History: Denies: Hx Diabetes Mellitus Type 1, Hx Diabetes Mellitus Type 2 Renal/ Medical History: Denies: Hx Peritoneal Dialysis - Immunizations Immunizations up to date: Yes Hx Diphtheria, Pertussis, Tetanus Vaccination: Yes Doctor's Discharge - Discharge Referrals: PATRICE WASHINGTON MD [Primary Care Provider] - Follow up as needed
--- NOTE | 2019-04-30 12:09 | RADIOLOGY REPORT (SQ) ---
EXAM DESCRIPTION: CHEST 2 VIEWS COMPLETED DATE/TIME: 04/30/2019 11:52 am REASON FOR STUDY: shortness of breath COMPARISON: PA and lateral views of the chest from 02/16/2019. EXAM PARAMETERS: NUMBER OF VIEWS: two views TECHNIQUE: Digital Frontal and Lateral radiographic views of the chest acquired. RADIATION DOSE: NA LIMITATIONS: none FINDINGS: LUNGS AND PLEURA: No consolidation, pleural effusion or pneumothorax. MEDIASTINUM AND HILAR STRUCTURES: No mediastinal or hilar contour abnormality. HEART AND VASCULAR STRUCTURES: The cardiac silhouette and pulmonary vasculature are within normal rogers its. BONES: No acute findings. HARDWARE: None. OTHER: No other finding. IMPRESSION: No acute cardiopulmonary process. TECHNICAL DOCUMENTATION: JOB ID: [id number] [email or web address]- All Rights Reserved Reading location - IP/workstation name: [email or web address]
--- NOTE | 2019-04-30 14:48 | ER Document Report ---
ED General - General Chief Complaint: Shortness Of Breath Stated Complaint: SHORTNESS OF BREATH Time Seen by Provider: 04/30/19 11:18 Primary Care Provider: PATRICE WASHINGTON MD [MARTY AGUILAR] - Follow up as needed Mode of Arrival: Ambulatory Notes: Patient is a 49-year-old female with asthma that presents to the emergency department for chief complaint of shortness of breath and wheezing. Patient states she is been having on and off wheezing and shortness of breath episodes and chest tightness for the past year, most recently she was on a quick steroid taper a few weeks ago, and 10 days of doxycycline, she did get some relief while she was on the steroids, but then she had an episode again today while at work where she felt she could not breathe and had tightness across her chest again. She then worked up from a cardiology standpoint that has been negative, she is due to see a dude wrangler next week. She currently takes Symbicort, albuterol at home. She did receive a breathing treatment in triage and she is feeling much better after that. Past Medical History: Asthma Past Surgical History: Denies recent or pertinent surgical history Social History: Denies tobacco use, reports secondhand smoke exposure, denies call or illicit drug use. Family History: Reviewed and noncontributory for presenting illness Allergies: Reviewed, see documented allergy list. REVIEW OF SYSTEMS: Other than noted above, the 12 point review of systems was reviewed with the patient and were negative, all pertinent findings are included in the HPI. PHYSICAL EXAMINATION: Vital signs reviewed, nursing noted reviewed. GENERAL: Well-appearing, well-nourished and in no acute distress. HEAD: Atraumatic, normocephalic. EYES: Eyes appear normal, extraocular movements intact, sclera anicteric, conjunctiva are normal. ENT: nares patent, oropharynx clear without exudates. Moist mucous membranes. NECK: Normal range of motion, supple without lymphadenopathy LUNGS: Breath sounds clear to auscultation bilaterally and equal. No wheezes rales or rhonchi. HEART: Regular rate and rhythm without murmurs ABDOMEN: Soft, nontender, normoactive bowel sounds. No rebound, guarding, or ri gidity. No masses appreciated. EXTREMITIES: Nontender, good range of motion, no pitting or edema. NEUROLOGICAL: No focal neurological deficits. Moves all extremities spontaneously Motor and sensory grossly intact on exam. PSYCH: Mildly anxious, but answers questions appropriately and is pleasant SKIN: Warm, Dry, normal turgor, no rashes or lesions noted on exposed skin TRAVEL OUTSIDE OF THE [place] IN LAST 30 DAYS: No - Related Data Allergies/Adverse Reactions: amoxicillin Allergy (Verified 11/13/18 19:28) Penicillins Allergy (Verified 11/13/18 19:28) Sulfa (Sulfonamide Antibiotics) Allergy (Verified 11/13/18 19:28) Past Medical History - General Information source: Patient - Social History Smoking Status: Never Smoker Chew tobacco use (# tins/day): No Frequency of alcohol use: None Drug Abuse: None Family History: Reviewed & Not Pertinent Patient has suicidal ideation: No Patient has homicidal ideation: No - Past Medical History Cardiac Medical History: Denies: Hx Coronary Artery Disease, Hx DVT Pulmonary Medical History: Reports: Hx Bronchitis Endocrine Medical History: Denies: Hx Diabetes Mellitus Type 1, Hx Diabetes Mellitus Type 2 Renal/ Medical History: Denies: Hx Peritoneal Dialysis - Immunizations Immunizations up to date: Yes Hx Diphtheria, Pertussis, Tetanus Vaccination: Yes Physical Exam - Vital signs Vitals: Temp Pulse Resp BP Pulse Ox 98.0 F 62 22 H 116/70 98 04/30/19 11:23 04/30/19 11:23 04/30/19 11:23 04/30/19 11:23 04/30/19 11:23 Course - Re-evaluation Re-evalutation: Patient seen and examined, vital signs reviewed, on my exam the patient is not having any further wheezing, she apparently was wheezing initially, but was improved after DuoNeb breathing treatment, she is also given initial dose of prednisone. Patient chest x-ray was negative for any acute process. Patient likely having a flare of reactive airway disease, does not have formal diagnosis of COPD or chronic bronchitis. I will have her follow-up with the dude wrangler, give her longer steroid taper, as she seems to get relief from steroids. Patient was agreed with this plan of care and discharged home. - Vital Signs Vital signs: Temp Pulse Resp BP Pulse Ox 98.0 F 62 22 H 116/70 99 04/30/19 11:23 04/30/19 11:23 04/30/19 11:23 04/30/19 11:23 04/30/19 12:00 Discharge - Discharge Clinical Impression: Reactive airway disease with acute exacerbation Qualifiers: Asthma severity: unspecified severity Asthma persistence: unspecified Qualified Code(s): J45.901 - Unspecified asthma with (acute) exacerbation Condition: Stable Disposition: HOME, SELF-CARE Instructions: Reactive Airway Disease ([facility]) Prescriptions: Prednisone 10 mg PO ASDIR PRN #60 tablet PRN Reason: Referrals: LINNEA GREY MD [ACTIVE STAFF] - Follow up in 1 week
[2019-04-30 15:12] VITALS: BP 114/72
== END 2019-04-30 15:13 | disposition home or self-care (01) ==
LOC: ER 11:08
DX: J45.901 Unspecified asthma with (acute) exacerbation (principal); R06.02 Shortness of breath; R07.89 Other chest pain; Z79.899 Other long term (current) drug therapy; Z79.51 Long term (current) use of inhaled steroids; Z88.0 Allergy status to penicillin; Z88.2 Allergy status to sulfonamides
CPT/HCPCS: 71046; J7512; J7620; 94640; 99284